=== PATIENT | female | born 1985 | race Caucasian/White ===

== ENCOUNTER 2018-11-29 23:15 | Emergency (ER) | payer BC, OTHER ==
[2018-11-29 23:27] VITALS: BP 132/86
--- NOTE | 2018-11-30 00:44 | EDM.PDOC ---
ED HPI GENERAL MEDICAL PROBLEM - General Chief Complaint: Respiratory Problem Stated Complaint: PAINS IN CHEST & HEAD Time Seen by Provider: 11/30/18 00:44 Source of Information: Reports: Patient History Limitations: Reports: No Limitations - History of Present Illness INITIAL COMMENTS - FREE TEXT/NARRATIVE: 33-year-old female from [facility] presents to the ED with acute onset of illness greater than 24 hours ago. She developed a harsh paroxysmal cough with occasional sputum production harsh raspy voice mild sore throat and generalized myalgia severe headache and inability to eat. I.e. many of the sinus symptoms of influenza. No one else at home is ill. She has 2 children home and her . She did not have a flu shot last year. Onset: Sudden Onset Date: 11/28/18 Onset Time: 21:00 Duration: Hour(s):, Getting Worse Location: Reports: Generalized (Generalized myalgia. Paroxysmal cough sometimes productive severe headache and anorexia.) Quality: Reports: Ache Severity: Moderate (Generalized myalgia) Improves with: Reports: None ( 7 out of 10) Worsens with: Reports: None Context: Denies: Activity, Exercise, Sick Contact, Trauma, Other Associated Symptoms: Reports: Chest Pain, Cough, cough w sputum, Diaphoresis, Fever/Chills, Headaches, Loss of Appetite (Severe), Malaise, Nausea/Vomiting, Shortness of Breath, Weakness. 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 below) (None.) Headache Pain Score (Numeric/FACES): 9 - Related Data Allergies Allergy/AdvReac Type Severity Reaction Status Date / Time diphenhydramine HCl Allergy Other Verified 11/29/18 23:27 [From Benadryl] Sulfa (Sulfonamide Allergy Other Verified 11/29/18 23:27 Antibiotics) Home Meds: Home Meds Levothyroxine 75 mcg PO ACBRK 09/11/14 [History] Hydrocodone/Chlorphen P-Stirex [Tussionex Pennkinetic Susp] 5 ml PO Q12H PRN # 60 ml 11/30/18 [Rx] Oseltamivir [Tamiflu] 75 mg PO BID #9 cap 11/30/18 [Rx] Past Medical History - Past Health History Medical/Surgical History: Denies Medical/Surgical History Social & Family History - Living Situation & Occupation Living situation: Reports: Occupation: Unemployed ED ROS GENERAL - Review of Systems Review Of Systems: See Below Constitutional: Reports: Fever, Chills, Malaise, Weakness, Fatigue, Decreased Appetite, Weight Loss HEENT: Reports: No Symptoms Respiratory: Reports: Shortness of Breath, Wheezing, Cough, Sputum Cardiovascular: Reports: Chest Pain Endocrine: Reports: Fatigue GI/Abdominal: Reports: Decreased Appetite : Reports: No Symptoms Musculoskeletal: Reports: Muscle Pain Skin: Reports: No Symptoms (Generalized myalgia) Neurological: Reports: Dizziness, Headache Psychiatric: Reports: No Symptoms (Severe throbbing pounding headache which she rates as 10 on a 10) Hematologic/Lymphatic: Reports: No Symptoms Immunologic: Reports: No Symptoms ED EXAM, GENERAL - Physical Exam Exam: See Below Exam Limited By: No Limitations General Appearance: Alert, WD/WN, Moderate Distress, Other (She is mildly warm to palpation.) Eye Exam: Bilateral Eye: Normal Inspection, PERRL Ears: Normal TMs Ear Exam: Bilateral Ear: Other (Unable to visualize either tympanic membrane is they're covered by dark brown black cerumen.) Throat/Mouth: Normal Inspection, Normal Oropharynx, Other Head: Atraumatic, Normocephalic (Lips are cracked and dry.), Sinus Tenderness Neck: Supple, Non-Tender, Full Range of Motion. No: Lymphadenopathy (L), Lymphadenopathy (R) Respiratory/Chest: No Respiratory Distress, Lungs Clear, Normal Breath Sounds, Chest Non-Tender, Other Cardiovascular: Normal Peripheral Pulses (Occasional productive sounding cough on in the ED), No Edema, No Gallop, No Murmur, No Rub, Tachycardia Peripheral Pulses: 3+: Carotid (L), Carotid (R), Posterior Tibial (L), Posterior Tibial (R), Dorsalis Pedis (L), Dorsalis Pedis (R) GI/Abdominal: Normal Bowel Sounds, Soft, Non-Tender, No Organomegaly, No Mass, Pelvis Stable, Rebound Back Exam: Normal Inspection, Full Range of Motion, CVA Tenderness (L), CVA Tenderness (R) (Mild) Extremities: Normal Inspection, Normal Range of Motion, Non-Tender, No Pedal Edema ( mild more muscular I believe thinned kidney pain) Neurological: Alert, Oriented, CN II-XII Intact, Normal Cognition, Normal Gait Psychiatric: Normal Affect, Anxious, Other Skin Exam: Warm, Dry, Intact (Feels very ill), Normal Color, No Rash Course - Vital Signs Last Recorded V/S: Last Vital Signs Temp 36.8 C 11/29/18 23:25 Pulse 105 H 11/29/18 23:25 Resp 16 11/29/18 23:25 BP 132/86 11/29/18 23:25 Pulse Ox 100 11/29/18 23:25 - Orders/Labs/Meds Meds: Medications Discontinued Medications Generic Name Dose Route Start Last Admin Trade Name Stephanq PRN Reason Stop Dose Admin Acetaminophen 975 mg 11/30/18 01:03 11/30/18 01:25 Tylenol PO 11/30/18 01:04 975 mg NOW ONE Administration Hydromorphone HCl 0.5 mg 11/30/18 01:03 11/30/18 01:26 Dilaudid IVPUSH 11/30/18 01:04 0.5 mg ONETIME ONE Administration Dextrose/Sodium Chloride 1,000 mls @ 999 mls/hr 11/30/18 01:15 11/30/18 01:24 Dextrose 5%-Normal Saline IV 999 mls/hr ASDIRECTED JUAN Administration Ketorolac Tromethamine 30 mg 11/30/18 01:15 11/30/18 01:34 Toradol IVPUSH 30 mg ONETIME JUAN Administration Ondansetron HCl 4 mg 11/30/18 01:04 11/30/18 01:26 Zofran IVPUSH 11/30/18 01:05 4 mg ONETIME ONE Administration Oseltamivir Phosphate 75 mg 11/30/18 02:08 11/30/18 02:17 Tamiflu PO 11/30/18 02:09 75 mg ONETIME ONE Administration - Radiology Interpretation Free Text/Narrative:: 33-year-old female presents the ED from [facility] where she resides. Came down with illness about day and a half ago with generalized myalgia loss of appetite heart paroxysmal cough with very hoarse raspy voice. The main reason for coming was the severity of the headache constant and throbbing and pounding. She's been in bed all day and hasn't really been a able to get up out of bed. therefore elected to bring her to [facility] for care. Examination reveals no active evidence of a bacterial infection. She has all the signs and symptoms of influenza. Plan influenza screen to be done. Will have IV started at D5 normal saline at open. Given Dilaudid 0.5 mg IV for headache relief. Toradol 30 mg IV. Tylenol 975 mg by mouth and Zofran 4 mg IV. - Re-Assessments/Exams Free Text/Narrative Re-Assessment/Exam: 11/30/18 01:58 Influenza screen is positive for the A type viral infection. Treated with another small dose of Dilaudid 0.5 mg IV for headache relief. Will send her home with 10 Percocet 5/325 mg tablets to be used one or 2 every 4-6 hours this for headache relief. Continue Motrin 600 mg every 6 hours needed for relief of generalized myalgia and headache and body ache. Gatorade Powerade to maintain hydration. Tamiflu started in the ED is 75 mg and will be continued twice daily for another 9 days. Departure - Departure Time of Disposition: 02:15 Disposition: Home, Self-Care 01 Condition: Fair Clinical Impression: Influenza A - Discharge Information *PRESCRIPTION DRUG MONITORING PROGRAM REVIEWED*: Not Applicable *COPY OF PRESCRIPTION DRUG MONITORING REPORT IN PATIENT FIDELIA: Not Applicable Prescriptions: Hydrocodone/Chlorphen P-Stirex [Tussionex Pennkinetic Susp] 5 ml PO Q12H PRN # 60 ml PRN Reason: cough relief. Oseltamivir [Tamiflu] 75 mg PO BID #9 cap Instructions: Influenza, Adult, [id number] Referrals: PCP,Not In Area [Primary Care Provider] - Forms: ED Department Discharge Additional Instructions: Evaluation in the emergency room tonight in regards to development of sudden onset of sore throat,raspy voice, paroxysmal cough associated headache and generalized ache. Associated loss of appetite. These are all signs and symptoms of influenza viral infection that has been very prevalent in our community as of late. He did identify that both eardrums are covered over by dark earwax. Suggest purchasing some Debrox--this is a solution used to loosen the wax from the ears. May place in each ear 2-3 drops once daily until they're wax comes out. 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 Evaluation confirms that you have influenza a type viral infection. You're treated with intravenous fluids to provide rehydration in the ED and given medications for headache and cough relief antiviral treatment also started in the emergency department. This is Tamiflu 75 mg tablet. This is to be taken twice daily for the next 5 days to help clear up a good deal of the symptoms from influenza A virus infection. Usually within 3 or 4 tablets appetite returns body ache and headache resolves. Often will persist for the better part of 2 weeks. Prescribed prescription cough syrup Tussionex, take 5 mils every 12 hours as needed for relief of severe cough or chest congestion. This usually is taken about an hour before bed so that you don't cough when you' re trying to sleep. I've written a prescription for Tamiflu 75 mg once daily for 10 days for your to try and prevent him from getting influenza A infection. If he develops symptoms with headache, fever, cough then he is to take it twice daily as well. Expect marked improvement over the next 48 hours.
[2018-11-30] MEDS ORDERED: HYDROmorphone 1 MG/ML Syringe IVPUSH ONE (01:03)
[2018-11-30] MEDS ORDERED: Acetaminophen 325 MG Tab PO ONE (01:03)
[2018-11-30] MEDS ORDERED: Ondansetron 4 MG/2 ML SDV IVPUSH ONE (01:04)
[2018-11-30] MEDS ORDERED: Dextrose 5%-0.9% NaCl 1,000 ML IV SCH (01:15)
[2018-11-30] MEDS ORDERED: Ketorolac 30 MG/ML SDV IVPUSH SCH (01:15)
[2018-11-30] MEDS ORDERED: Oseltamivir 75 MG Cap PO ONE (02:08)
== END 2018-11-30 02:42 | disposition home or self-care (01) ==
LOC: JD.ED 23:15
DX: J10.1 Influenza due to other identified influenza virus with other respiratory manifestations (principal)
CPT/HCPCS: 87804; 96361; 96374; 96375; 99283; A9270; J1170; J1885; J2405; J7042; 99284